=== PATIENT | male | born 1945 | race Caucasian/White ===

== ENCOUNTER → 2024-02-19 13:22 | Outpatient (BNVA) | payer MEDICARE, SELFPAY | PROVIDERS: Visit Provider Dermatology | DX: D03.59 Melanoma in situ of other part of trunk (principal); C44.319 Basal cell carcinoma of skin of other parts of face; C44.41 Basal cell carcinoma of skin of scalp and neck; L82.1 Other seborrheic keratosis; D18.01 Hemangioma of skin and subcutaneous tissue; L81.4 Other melanin hyperpigmentation | CPT/HCPCS: 11604; 12032; 14041; 17272; 17311; 99213 ==

== ENCOUNTER → 2024-03-05 11:08 | Outpatient (BNVA) | payer MEDICARE, SELFPAY | PROVIDERS: Visit Provider Dermatology | DX: T81.40XA Infection following a procedure, unspecified, initial encounter (principal); X58.XXXA Exposure to other specified factors, initial encounter | CPT/HCPCS: 99214 ==

== ENCOUNTER → 2024-03-17 14:19 | Outpatient (BNVA) | payer MEDICARE, SELFPAY | PROVIDERS: Visit Provider Dermatology | DX: Z48.817 Encounter for surgical aftercare following surgery on the skin and subcutaneous tissue (principal); Z85.828 Personal history of other malignant neoplasm of skin; Z86.006 Personal history of melanoma in-situ; R22.9 Localized swelling, mass and lump, unspecified; L82.1 Other seborrheic keratosis | CPT/HCPCS: 99213 ==

== ENCOUNTER → 2024-06-02 14:15 | Outpatient (BNVA) | payer MEDICARE, SELFPAY | PROVIDERS: Visit Provider Nurse Practitioner Family | DX: D18.01 Hemangioma of skin and subcutaneous tissue (principal); L57.8 Other skin changes due to chronic exposure to nonionizing radiation; D36.14 Benign neoplasm of peripheral nerves and autonomic nervous system of thorax; L57.0 Actinic keratosis; Z85.820 Personal history of malignant melanoma of skin | CPT/HCPCS: 17000; 99213 ==